=== PATIENT | male | born 1960 | race Asian ===

== ENCOUNTER 2022-04-19 15:21 | Inpatient (IN) | payer OTHER ==
[2022-04-19 19:26] LABS: BASO % 0.2 % (0-2.0); EOS % 0.4 % (0-4.5); HEMATOCRIT 46.3 % (35.4-49); HEMOGLOBIN 15.4 GM/dL (11.7-16.9); LYMPH % 13.4 % (8-40); MCH 28.8 pg (25.7-33.7); MCHC 33.2 g/dl (32.0-35.9); MEAN CELL VOLUME 86.6 fl (80-96); MEAN PLT VOLUME 7.5 fl (7.5-11.1); MONO % 5.5 % (3.8-10.2); NEUT % 80.5 % (42.8-82.8); PLATELET COUNT 272 10^3/uL (134-434); RBC 5.34 M/mm3 (4.00-5.60); RDW 14.1 % (11.9-15.9)
[2022-04-19 19:50] LABS: CALCIUM 9.3 mg/dL (8.5-10.1)
[2022-04-19 19:51] LABS: BLOOD UREA NITROGEN 15.7 mg/dL (7-18)
[2022-04-19 19:52] LABS: MAGNESIUM 2.3 mg/dL (1.8-2.4)
[2022-04-19 19:54] LABS: CREATININE 1.2 mg/dL (0.55-1.3); INR 1.07 (0.83-1.09); PROTHROMBIN TIME (PATIENT) 12.3 SEC (9.7-13.0)
[2022-04-19 19:55] LABS: TOT PROT 7.7 g/dl (6.4-8.2)
[2022-04-19 19:56] LABS: ACTIVATED PTT 29.4 SECONDS (25.2-36.5)
[2022-04-19 20:47] LABS: EPI CELLS 0 /uL (0-25.1); HYALINE CASTS 0 /uL (0-3.1); URINE APPEARANCE CLEAR; URINE BACTERIA >9,000 /uL (0-1359); URINE BILIRUBIN NEGATIVE (NEGATIVE); URINE COLOR YELLOW; URINE GLUCOSE (UA) NEGATIVE (NEGATIVE); URINE KETONE NEGATIVE (NEGATIVE); URINE LEUK ESTERASE 2+ (NEGATIVE); URINE NITRITE POSITIVE (NEGATIVE); URINE PROTEIN NEGATIVE (NEGATIVE); URINE RBC 1 /uL (0-23.9); URINE UROBILINOGEN 0.2 mg/dL (0.2-1.0); URINE WBC 133 /uL (0-25.8)
[2022-04-19] MEDS ORDERED: CEFTRIAXONE 1 GM in DEXTROSE 5%-WATER - 50 ML IVPB ONE (20:57)
[2022-04-19] MEDS ORDERED: CEFTRIAXONE 1 GM/50 ML BAG ONE (21:01)
[2022-04-20] MEDS ORDERED: LISINOPRIL 20 MG TABLET PO ONE (00:55)
[2022-04-20] MEDS ORDERED: LISINOPRIL 20 MG TABLET ONE (02:04)
[2022-04-20] MEDS ORDERED: ACETAMINOPHEN 1000 MG/100 ML BAG IVPB ONE (03:16)
[2022-04-20 07:49] LABS: BASO % 0.2 % (0-2.0); EOS % 0.7 % (0-4.5); HEMATOCRIT 44.1 % (35.4-49); HEMOGLOBIN 14.9 GM/dL (11.7-16.9); LYMPH % 10.3 % (8-40); MCH 29.7 pg (25.7-33.7); MCHC 33.9 g/dl (32.0-35.9); MEAN CELL VOLUME 87.6 fl (80-96); MEAN PLT VOLUME 7.7 fl (7.5-11.1); MONO % 5.7 % (3.8-10.2); NEUT % 83.1 % (42.8-82.8); PLATELET COUNT 230 10^3/uL (134-434); RBC 5.03 M/mm3 (4.00-5.60); RDW 13.9 % (11.9-15.9); WHITE BLOOD COUNT 10.9 K/mm3 (4.0-10.0)
[2022-04-20 08:17] LABS: BILIRUBIN,TOTAL 1.5 mg/dL (0.2-1)
[2022-04-20 08:18] LABS: TOT PROT 6.8 g/dl (6.4-8.2)
[2022-04-20 08:19] LABS: BLOOD UREA NITROGEN 15.1 mg/dL (7-18); CALCIUM 8.8 mg/dL (8.5-10.1); MAGNESIUM 2.2 mg/dL (1.8-2.4)
[2022-04-20 08:20] LABS: ALBUMIN 3.6 g/dl (3.4-5.0); CREATININE 1.1 mg/dL (0.55-1.3)
[2022-04-20 08:23] LABS: PHOSPHOROUS 2.9 mg/dL (2.5-4.9)
[2022-04-20] MEDS: INSULIN SLIDING SCALE (NOVOLOG) 1 VIAL SQ SCH ×4 (08:27→22:04)
[2022-04-20] MEDS ORDERED: CEFTRIAXONE 1 GM/50 ML BAG ONE (08:38)
[2022-04-20] MEDS ORDERED: ENOXAPARIN NA (PORCINE) 40 MG/0.4 ML DISP.SYRIN SQ ONE (08:38)
[2022-04-20] MEDS: HYDROCHLOROTHIAZIDE 12.5 MG CAPSULE (FP) PO SCH (09:00)
[2022-04-20] MEDS: ENOXAPARIN NA (PORCINE) 40 MG/0.4 ML DISP.SYRIN SQ SCH (09:00)
[2022-04-20] MEDS ORDERED: PIPERACILLIN/TAZOB 3.375 GM 3.375 GM in DEXTROSE 5%-WATER - 50 ML IVPB SCH ×2 (10:00→11:30)
[2022-04-20] MEDS ORDERED: CEFTRIAXONE 1,000 MG in DEXTROSE 5%-WATER - 50 ML IVPB SCH (10:00)
[2022-04-20 11:09] LABS: N-TERMINAL BNP 108.9 pg/ml (5-125)
[2022-04-20] MEDS ORDERED: PIPERACILLIN/TAZOB 3.375 GM 3.375 GM/50 ML BAG IVPB ONE (13:54)
[2022-04-20] MEDS ORDERED: PIPERACILLIN/TAZOBACTAM 3.375 GM VIAL IVPB ONE (19:01)
[2022-04-20 19:53] VITALS: BMI 27.1
[2022-04-20] MEDS ORDERED: LISINOPRIL 20 MG TABLET PO SCH (22:00)
[2022-04-20] MEDS: ATORVASTATIN CA 80 MG TABLET (FP) PO SCH (22:03)
[2022-04-20] MEDS: PIPERACILLIN/TAZOB 3.375 GM 3.375 GM in DEXTROSE 5%-WATER - 50 ML IVPB SCH (22:03)
[2022-04-21] MEDS ORDERED: PIPERACILLIN/TAZOBACTAM 3.375 GM VIAL IVPB ONE ×2 (02:13→09:08)
[2022-04-21] MEDS ORDERED: DEXTROSE 5%-WATER - 50 ML IVPB ONE ×2 (02:14→09:09)
[2022-04-21] MEDS: PIPERACILLIN/TAZOB 3.375 GM 3.375 GM in DEXTROSE 5%-WATER - 50 ML IVPB SCH ×2 (02:45→09:45)
[2022-04-21] MEDS: INSULIN SLIDING SCALE (NOVOLOG) 1 VIAL SQ SCH ×4 (06:15→21:52)
[2022-04-21 07:31] LABS: BASO % 0.5 % (0-2.0); EOS % 1.4 % (0-4.5); HEMATOCRIT 43.4 % (35.4-49); HEMOGLOBIN 14.8 GM/dL (11.7-16.9); LYMPH % 19.6 % (8-40); MCH 29.7 pg (25.7-33.7); MCHC 34.1 g/dl (32.0-35.9); MEAN CELL VOLUME 87.2 fl (80-96); MEAN PLT VOLUME 7.7 fl (7.5-11.1); MONO % 8.3 % (3.8-10.2); NEUT % 70.2 % (42.8-82.8); PLATELET COUNT 232 10^3/uL (134-434); RBC 4.98 M/mm3 (4.00-5.60); RDW 14.1 % (11.9-15.9); WHITE BLOOD COUNT 8.9 K/mm3 (4.0-10.0)
[2022-04-21 08:18] LABS: ALBUMIN 3.4 g/dl (3.4-5.0)
[2022-04-21 08:19] LABS: MAGNESIUM 2.4 mg/dL (1.8-2.4)
[2022-04-21 08:21] LABS: CREATININE 1.7 mg/dL (0.55-1.3)
[2022-04-21 08:22] LABS: TOT PROT 6.8 g/dl (6.4-8.2)
[2022-04-21 08:23] LABS: BILIRUBIN,TOTAL 1.4 mg/dL (0.2-1)
[2022-04-21] MEDS: HYDROCHLOROTHIAZIDE 12.5 MG CAPSULE (FP) PO SCH (09:44)
[2022-04-21] MEDS: ENOXAPARIN NA (PORCINE) 40 MG/0.4 ML DISP.SYRIN SQ SCH (09:44)
[2022-04-21] MEDS ORDERED: MEROPENEM 1 GM in DEXTROSE 5%-WATER 100 ML IVPB SCH ×3 (10:45→18:00)
[2022-04-21] MEDS: LACTATED RINGERS SOLUTION 1,000 ML/1,000 ML INFUS.BAG IV SCH (11:45)
[2022-04-21] MEDS ORDERED: MEROPENEM 1 GM VIAL (RESTRICTED TO ID) IVPB ONE ×2 (13:15→18:11)
[2022-04-21] MEDS ORDERED: DEXTROSE 5%-WATER 100 ML IVPB ONE ×2 (13:15→18:11)
[2022-04-21] MEDS: MEROPENEM 1 GM in DEXTROSE 5%-WATER 100 ML IVPB SCH (18:27)
[2022-04-21] MEDS: ATORVASTATIN CA 80 MG TABLET (FP) PO SCH (21:52)
[2022-04-22] MEDS ORDERED: MEROPENEM 1 GM VIAL (RESTRICTED TO ID) IVPB ONE ×3 (00:35→17:36)
[2022-04-22] MEDS ORDERED: DEXTROSE 5%-WATER 100 ML IVPB ONE ×3 (00:35→17:36)
[2022-04-22] MEDS: MEROPENEM 1 GM in DEXTROSE 5%-WATER 100 ML IVPB SCH ×3 (01:34→17:48)
[2022-04-22] MEDS ORDERED: ACETAMINOPHEN 325 MG TABLET (FP) PO ONE (03:51)
[2022-04-22] MEDS: INSULIN SLIDING SCALE (NOVOLOG) 1 VIAL SQ SCH ×4 (06:34→22:00)
[2022-04-22 08:41] LABS: BASO % 0.3 % (0-2.0); EOS % 0.5 % (0-4.5); HEMATOCRIT 44.8 % (35.4-49); LYMPH % 10.7 % (8-40); MCH 29.6 pg (25.7-33.7); MCHC 33.5 g/dl (32.0-35.9); MEAN CELL VOLUME 88.4 fl (80-96); MEAN PLT VOLUME 8.1 fl (7.5-11.1); MONO % 6.2 % (3.8-10.2); NEUT % 82.3 % (42.8-82.8); PLATELET COUNT 228 10^3/uL (134-434); RBC 5.08 M/mm3 (4.00-5.60); RDW 13.9 % (11.9-15.9); WHITE BLOOD COUNT 11.4 K/mm3 (4.0-10.0)
[2022-04-22 08:58] LABS: ALBUMIN 3.4 g/dl (3.4-5.0); BLOOD UREA NITROGEN 25.7 mg/dL (7-18); CALCIUM 8.6 mg/dL (8.5-10.1)
[2022-04-22 09:01] LABS: CREATININE 1.3 mg/dL (0.55-1.3)
[2022-04-22 09:03] LABS: BILIRUBIN,TOTAL 1.6 mg/dL (0.2-1); TOT PROT 6.6 g/dl (6.4-8.2)
[2022-04-22] MEDS: LACTATED RINGERS SOLUTION 1,000 ML/1,000 ML INFUS.BAG IV SCH (10:01)
[2022-04-22] MEDS: ENOXAPARIN NA (PORCINE) 40 MG/0.4 ML DISP.SYRIN SQ SCH (10:04)
[2022-04-22] MEDS ORDERED: LACTATED RINGERS SOLUTION 1,000 ML/1,000 ML INFUS.BAG IV SCH (10:29)
[2022-04-22] MEDS: LACTOBACILLUS ACIDOPHILUS 1 TABLET PO SCH (11:10)
[2022-04-22] MEDS: ATORVASTATIN CA 80 MG TABLET (FP) PO SCH (21:54)
[2022-04-23] MEDS ORDERED: MEROPENEM 1 GM VIAL (RESTRICTED TO ID) IVPB ONE (00:57)
[2022-04-23] MEDS ORDERED: DEXTROSE 5%-WATER 100 ML IVPB ONE (00:57)
[2022-04-23] MEDS: MEROPENEM 1 GM in DEXTROSE 5%-WATER 100 ML IVPB SCH (01:11)
[2022-04-23] MEDS: INSULIN SLIDING SCALE (NOVOLOG) 1 VIAL SQ SCH ×2 (06:28→12:42)
[2022-04-23 07:31] LABS: BASO % 0.3 % (0-2.0); EOS % 1.4 % (0-4.5); HEMATOCRIT 44.3 % (35.4-49); HEMOGLOBIN 15.3 GM/dL (11.7-16.9); LYMPH % 13.5 % (8-40); MCHC 34.6 g/dl (32.0-35.9); MEAN CELL VOLUME 86.7 fl (80-96); MEAN PLT VOLUME 7.6 fl (7.5-11.1); MONO % 7.9 % (3.8-10.2); NEUT % 76.9 % (42.8-82.8); PLATELET COUNT 242 10^3/uL (134-434); RBC 5.11 M/mm3 (4.00-5.60); RDW 13.9 % (11.9-15.9); WHITE BLOOD COUNT 11.2 K/mm3 (4.0-10.0)
[2022-04-23] MEDS ORDERED: ERTAPENEM SODIUM 1 GM in SODIUM CHLORIDE 50 ML IVPB ONE (07:40)
[2022-04-23 07:45] LABS: ALBUMIN 3.6 g/dl (3.4-5.0); BLOOD UREA NITROGEN 18.3 mg/dL (7-18); MAGNESIUM 2.1 mg/dL (1.8-2.4)
[2022-04-23 07:48] LABS: CREATININE 1.2 mg/dL (0.55-1.3); PHOSPHOROUS 2.5 mg/dL (2.5-4.9)
[2022-04-23 07:49] LABS: BILIRUBIN,TOTAL 1.7 mg/dL (0.2-1); TOT PROT 7.2 g/dl (6.4-8.2)
[2022-04-23 09:14] VITALS: BP 116/73; PULSE 97; TEMP 98.8
[2022-04-23] MEDS: LACTOBACILLUS ACIDOPHILUS 1 TABLET PO SCH (10:12)
[2022-04-23] MEDS: ENOXAPARIN NA (PORCINE) 40 MG/0.4 ML DISP.SYRIN SQ SCH (10:12)
== END 2022-04-23 16:51 | disposition home or self-care (01) | DRG 720 ==
LOC: JER 15:21 → OBSVTOIN 21:39 → JERBED 21:39 → J4W 04-20 17:56
PROVIDERS: ADMIT Internal Medicine; ATTEND Internal Medicine
PROC: 02HV33Z Insertion of Infusion Device into Superior Vena Cava, Percutaneous Approach (ICD-10-PCS; principal; 2022-04-22)
PROC: B548ZZA Ultrasonography of Superior Vena Cava, Guidance (ICD-10-PCS; 2022-04-22)
DX: A41.9 Sepsis, unspecified organism (principal); N39.0 Urinary tract infection, site not specified; N17.9 Acute kidney failure, unspecified; E11.65 Type 2 diabetes mellitus with hyperglycemia; I10 Essential (primary) hypertension; I16.0 Hypertensive urgency; E78.5 Hyperlipidemia, unspecified; D72.829 Elevated white blood cell count, unspecified; B96.20 Unspecified Escherichia coli [E. coli] as the cause of diseases classified elsewhere; Z16.12 Extended spectrum beta lactamase (ESBL) resistance
CPT/HCPCS: 36415; 36569; 70450-TC; 71046-TC-FY; 77001-TC-FY; 80053; 80061; 81003; 82962; 83036; 83735; 83880; 84100; 84443; 84484; 85025; 85610; 85730; 87086; 87186; 93005; 93010; 93306-TC; 93880-TC; 99285-25; C1751; C9803-CS; U0003; U0005

== ENCOUNTER 2022-04-24 09:56 | Day surgery (SDC) | payer SELFPAY ==
[2022-04-24] MEDS ORDERED: ERTAPENEM SODIUM 1 GM in SODIUM CHLORIDE 50 ML IVPB ONE (10:30)
[2022-04-24] MEDS ORDERED: ERTAPENEM SODIUM 1 GM VIAL ONE (10:33)
[2022-04-24] MEDS ORDERED: SODIUM CHLORIDE 50 ML IVPB ONE (10:33)
[2022-04-24 11:12] VITALS: BP 133/81; PULSE 87; TEMP 98.1
== END 2022-04-24 11:16 | disposition home or self-care (01) ==
LOC: FINFUSION 09:56 → FM/S 10:04 → FINFUSION 11:16
PROVIDERS: ATTEND Internal Medicine Infectious Disease
DX: N39.0 Urinary tract infection, site not specified (principal); I10 Essential (primary) hypertension; E11.9 Type 2 diabetes mellitus without complications; Z79.4 Long term (current) use of insulin
CPT/HCPCS: 96366; 96367

== ENCOUNTER 2022-04-25 10:14 | Day surgery (SDC) | payer SELFPAY ==
[2022-04-25] MEDS ORDERED: ERTAPENEM SODIUM 1 GM VIAL ONE (10:37)
[2022-04-25] MEDS ORDERED: SODIUM CHLORIDE 50 ML IVPB ONE (10:37)
[2022-04-25] MEDS ORDERED: ERTAPENEM SODIUM 1 GM in SODIUM CHLORIDE 50 ML IVPB ONE (11:00)
[2022-04-25 11:56] VITALS: BP 120/76; PULSE 84; TEMP 98.5
== END 2022-04-25 11:30 | disposition home or self-care (01) ==
LOC: FINFUSION 10:14 → FM/S 10:14 → FINFUSION 11:30
PROVIDERS: ATTEND Internal Medicine Infectious Disease
DX: N39.0 Urinary tract infection, site not specified (principal); I10 Essential (primary) hypertension; E11.9 Type 2 diabetes mellitus without complications; Z79.4 Long term (current) use of insulin
CPT/HCPCS: 96365

== ENCOUNTER 2022-04-26 10:43 | Day surgery (SDC) | payer SELFPAY ==
[2022-04-26] MEDS ORDERED: SODIUM CHLORIDE 50 ML IVPB ONE (10:59)
[2022-04-26] MEDS ORDERED: ERTAPENEM SODIUM 1 GM VIAL ONE (10:59)
[2022-04-26] MEDS ORDERED: ERTAPENEM SODIUM 1 GM in SODIUM CHLORIDE 50 ML IVPB ONE (11:00)
[2022-04-26 11:34] VITALS: BP 133/65; PULSE 84; TEMP 98.5
== END 2022-04-26 11:45 | disposition home or self-care (01) ==
LOC: FINFUSION 10:43 → FM/S 10:46 → FINFUSION 11:45
PROVIDERS: ATTEND Internal Medicine Infectious Disease
DX: N39.0 Urinary tract infection, site not specified (principal); I10 Essential (primary) hypertension; E11.9 Type 2 diabetes mellitus without complications; Z79.4 Long term (current) use of insulin
CPT/HCPCS: 96365

== ENCOUNTER 2022-04-27 11:19 | Day surgery (SDC) | payer SELFPAY ==
[2022-04-27] MEDS ORDERED: ERTAPENEM SODIUM 1 GM in SODIUM CHLORIDE 50 ML IVPB ONE (12:15)
[2022-04-27] MEDS ORDERED: SODIUM CHLORIDE 50 ML IVPB ONE (12:15)
[2022-04-27] MEDS ORDERED: ERTAPENEM SODIUM 1 GM VIAL ONE (12:15)
[2022-04-27 13:34] VITALS: BP 112/73; PULSE 83; TEMP 98.1
== END 2022-04-27 13:25 | disposition home or self-care (01) ==
LOC: FINFUSION 11:19 → FM/S 11:30 → FINFUSION 13:25
PROVIDERS: ATTEND Internal Medicine Infectious Disease
DX: N39.0 Urinary tract infection, site not specified (principal); I10 Essential (primary) hypertension; E11.9 Type 2 diabetes mellitus without complications; Z79.4 Long term (current) use of insulin
CPT/HCPCS: 96365; 96367

== ENCOUNTER 2022-04-28 10:45 | Day surgery (SDC) | payer SELFPAY ==
[2022-04-28] MEDS ORDERED: SODIUM CHLORIDE 50 ML IVPB ONE (11:09)
[2022-04-28] MEDS ORDERED: ERTAPENEM SODIUM 1 GM VIAL ONE (11:09)
[2022-04-28] MEDS ORDERED: ERTAPENEM SODIUM 1 GM in SODIUM CHLORIDE 50 ML IVPB ONE (11:30)
[2022-04-28 11:46] VITALS: BP 133/75; PULSE 70; TEMP 98.3
== END 2022-04-28 11:48 | disposition home or self-care (01) ==
LOC: FINFUSION 10:45 → FM/S 11:01 → FINFUSION 11:48
PROVIDERS: ATTEND Internal Medicine Infectious Disease
DX: N39.0 Urinary tract infection, site not specified (principal); I10 Essential (primary) hypertension; E11.9 Type 2 diabetes mellitus without complications; Z79.4 Long term (current) use of insulin
CPT/HCPCS: 96365

== ENCOUNTER 2022-04-29 10:15 | Day surgery (SDC) | payer SELFPAY ==
[2022-04-29] MEDS ORDERED: SODIUM CHLORIDE 50 ML IVPB ONE (10:34)
[2022-04-29] MEDS ORDERED: ERTAPENEM SODIUM 1 GM VIAL ONE (10:34)
[2022-04-29] MEDS ORDERED: ERTAPENEM SODIUM 1 GM in SODIUM CHLORIDE 50 ML IVPB ONE (10:45)
[2022-04-29 11:30] VITALS: BP 106/88; PULSE 74; TEMP 97.9
== END 2022-04-29 11:35 | disposition home or self-care (01) ==
LOC: FINFUSION 10:15 → FM/S 10:16 → FINFUSION 11:35
PROVIDERS: ATTEND Internal Medicine Infectious Disease
DX: N39.0 Urinary tract infection, site not specified (principal); I10 Essential (primary) hypertension; E11.9 Type 2 diabetes mellitus without complications; Z79.4 Long term (current) use of insulin
CPT/HCPCS: 96365

== ENCOUNTER 2022-04-30 11:39 | Day surgery (SDC) | payer SELFPAY ==
[2022-04-30] MEDS ORDERED: ERTAPENEM SODIUM 1 GM/50 ML PRE-DOCKED IVPB SCH (12:00)
[2022-04-30 13:38] VITALS: BP 118/54; PULSE 85; TEMP 98.2
== END 2022-04-30 13:00 | disposition home or self-care (01) ==
LOC: FINFUSION 11:39 → FM/S 11:43 → FINFUSION 13:00
PROVIDERS: ATTEND Internal Medicine Infectious Disease
DX: N39.0 Urinary tract infection, site not specified (principal); I10 Essential (primary) hypertension; E11.9 Type 2 diabetes mellitus without complications; Z79.4 Long term (current) use of insulin
CPT/HCPCS: 96365

== ENCOUNTER 2022-05-01 10:06 | Day surgery (SDC) | payer SELFPAY ==
[2022-05-01] MEDS ORDERED: ERTAPENEM SODIUM 1 GM in SODIUM CHLORIDE 50 ML IVPB ONE (11:00)
[2022-05-01] MEDS ORDERED: ERTAPENEM SODIUM 1 GM VIAL ONE (11:02)
[2022-05-01] MEDS ORDERED: SODIUM CHLORIDE 50 ML IVPB ONE (11:02)
[2022-05-01 12:03] VITALS: BP 115/77; PULSE 87; TEMP 98.9
== END 2022-05-01 12:04 | disposition home or self-care (01) ==
LOC: FINFUSION 10:06 → FM/S 10:30 → FINFUSION 12:04
PROVIDERS: ATTEND Internal Medicine Infectious Disease
DX: N39.0 Urinary tract infection, site not specified (principal); I10 Essential (primary) hypertension; E11.9 Type 2 diabetes mellitus without complications; Z79.4 Long term (current) use of insulin
CPT/HCPCS: 96365

== ENCOUNTER 2023-10-25 15:18 | Emergency (ER) | payer OTHER ==
[2023-10-25 15:37] VITALS: BP 157/83; PULSE 96; RESP 18; TEMP 97.5; BMI 25.0
[2023-10-25] MEDS ORDERED: SODIUM CHLORIDE 1,000 ML IV STA (16:21)
[2023-10-25 16:45] LABS: BASO % 0.3 % (0-2.0); EOS % 1.1 % (0-4.5); HEMATOCRIT 41.2 % (35.4-49); HEMOGLOBIN 13.5 GM/dL (11.7-16.9); LYMPH % 13.3 % (8-40); MCH 28.7 pg (25.7-33.7); MCHC 32.8 g/dl (32.0-35.9); MEAN CELL VOLUME 87.5 fl (80-96); MEAN PLT VOLUME 7.2 fl (7.5-11.1); MONO % 5.2 % (3.8-10.2); NEUT % 80.1 % (42.8-82.8); PLATELET COUNT 282 10^3/uL (134-434); RBC 4.71 M/mm3 (4.00-5.60); RDW 14.8 % (11.9-15.9)
[2023-10-25 17:12] LABS: EPI CELLS 1 /uL (0-25.1); HYALINE CASTS 1 /uL (0-3.1); PH,URINE 5.5 (5.0-8.0); URINE APPEARANCE CLEAR; URINE BACTERIA 7687 /uL (0-1359); URINE BILIRUBIN NEGATIVE (NEGATIVE); URINE COLOR YELLOW; URINE GLUCOSE (UA) NEGATIVE (NEGATIVE); URINE KETONE NEGATIVE (NEGATIVE); URINE LEUK ESTERASE 3+ (NEGATIVE); URINE NITRITE POSITIVE (NEGATIVE); URINE PROTEIN NEGATIVE (NEGATIVE); URINE RBC 16 /uL (0-23.9); URINE UROBILINOGEN 0.2 mg/dL (0.2-1.0); URINE WBC 637 /uL (0-25.8)
[2023-10-25] MEDS ORDERED: NITROFURANTOIN MACROCRYSTAL 50 MG CAPSULE (FP) ONE (17:40)
[2023-10-25] MEDS ORDERED: NITROFURANTOIN MACROCRYSTAL 50 MG CAPSULE (FP) PO ONE (17:45)
[2023-10-25] MEDS ORDERED: ACETAMINOPHEN 500 MG TABLET (FP) PO ONE (18:10)
[2023-10-25] MEDS ORDERED: ACETAMINOPHEN 325 MG TABLET (FP) ONE (18:18)
[2023-10-25 18:37] LABS: POTASSIUM 5.2 mmol/L (3.5-5.1)
[2023-10-25 18:39] LABS: CALCIUM 9.3 mg/dL (8.5-10.1)
[2023-10-25 18:40] LABS: ALBUMIN 3.8 g/dl (3.4-5.0); BLOOD UREA NITROGEN 17.2 mg/dL (7-18)
[2023-10-25 18:43] LABS: CREATININE 1.6 mg/dL (0.55-1.3)
[2023-10-25 18:45] LABS: BILIRUBIN,TOTAL 0.6 mg/dL (0.2-1); TOT PROT 7.7 g/dl (6.4-8.2)
== END 2023-10-25 19:59 | disposition home or self-care (01) ==
LOC: JER 15:18
DX: R51.9 Headache, unspecified (principal); N39.0 Urinary tract infection, site not specified; R07.89 Other chest pain
CPT/HCPCS: 36415; 70450-TC; 71046-TC-FY; 80053; 81003; 82550; 83690; 84484; 85025; 87086; 87186; 93005; 93010; 99285-25

== ENCOUNTER 2023-10-31 16:55 | Emergency (ER) | payer OTHER ==
[2023-10-31 17:05] VITALS: BP 148/79; PULSE 80; RESP 18; TEMP 98; BMI 25.0
[2023-10-31 18:07] LABS: BASO % 0.3 % (0-2.0); EOS % 1.7 % (0-4.5); HEMATOCRIT 41.2 % (35.4-49); HEMOGLOBIN 13.6 GM/dL (11.7-16.9); LYMPH % 17.1 % (8-40); MCH 28.5 pg (25.7-33.7); MCHC 32.9 g/dl (32.0-35.9); MEAN CELL VOLUME 86.5 fl (80-96); MEAN PLT VOLUME 7.1 fl (7.5-11.1); MONO % 8.5 % (3.8-10.2); NEUT % 72.4 % (42.8-82.8); PLATELET COUNT 281 10^3/uL (134-434); RBC 4.76 M/mm3 (4.00-5.60); RDW 14.7 % (11.9-15.9); WHITE BLOOD COUNT 9.2 K/mm3 (4.0-10.0)
[2023-10-31 18:25] LABS: POTASSIUM 4.5 mmol/L (3.5-5.1)
[2023-10-31 18:26] LABS: CALCIUM 9.3 mg/dL (8.5-10.1)
[2023-10-31 18:27] LABS: BLOOD UREA NITROGEN 18.7 mg/dL (7-18)
[2023-10-31 18:31] LABS: CREATININE 1.4 mg/dL (0.55-1.3)
[2023-10-31 18:32] LABS: BILIRUBIN,TOTAL 1.4 mg/dL (0.2-1); TOT PROT 7.4 g/dl (6.4-8.2)
[2023-10-31 19:03] LABS: EPI CELLS 0 /uL (0-25.1); HYALINE CASTS 3 /uL (0-3.1); PH,URINE 5.5 (5.0-8.0); URINE APPEARANCE CLOUDY; URINE BACTERIA 2509 /uL (0-1359); URINE BILIRUBIN NEGATIVE (NEGATIVE); URINE COLOR YELLOW; URINE GLUCOSE (UA) NEGATIVE (NEGATIVE); URINE KETONE NEGATIVE (NEGATIVE); URINE LEUK ESTERASE 3+ (NEGATIVE); URINE NITRITE NEGATIVE (NEGATIVE); URINE PROTEIN NEGATIVE (NEGATIVE); URINE RBC 13 /uL (0-23.9); URINE UROBILINOGEN 0.2 mg/dL (0.2-1.0); URINE WBC 547 /uL (0-25.8)
[2023-10-31] MEDS ORDERED: SULFAMETHOXAZOLE/TRIMETHOPRIM 800MG/160MG D.S. TABLET PO ONE (20:49)
[2023-10-31] MEDS ORDERED: SULFAMETHOXAZOLE/TRIMETHOPRIM 800MG/160MG D.S. TABLET ONE (21:15)
== END 2023-10-31 21:22 | disposition home or self-care (01) ==
LOC: JER 16:55
DX: R51.9 Headache, unspecified (principal); I10 Essential (primary) hypertension; N39.0 Urinary tract infection, site not specified; R30.0 Dysuria
CPT/HCPCS: 36415; 80053; 81003; 82962; 85025; 87086; 87186; 99283-25

== ENCOUNTER 2025-07-16 12:32 | Inpatient (IN) | payer OTHER ==
[2025-07-16] MEDS ORDERED: ACETAMINOPHEN INJECTION 100 ML ONE (13:26)
[2025-07-16] MEDS ORDERED: ONDANSETRON 4 MG/2 ML VIAL ONE (13:27)
[2025-07-16] MEDS: ONDANSETRON 4 MG/2 ML VIAL IVPB ONE (13:57)
[2025-07-16] MEDS: ACETAMINOPHEN 1000 MG/100 ML BAG IVPB ONE (13:57)
[2025-07-16 13:59] LABS: BG HCT 41.0 % (35.4-49); VENOUS BASE EXCESS -5.5 mmol/L (-2-2); VENOUS O2 SATURATION 48.2 % (70-80); VENOUS PCO2 44.9 mmHg (38-52); VENOUS PH 7.289 (7.310-7.410)
[2025-07-16 14:00] LABS: MCHC 32.5 g/dl (32.3-36.5); MEAN CELL VOLUME 88.0 fl (79.0-92.2); MEAN PLT VOLUME 9.8 fl (9.4-12.4); RDW 12.9 % (12.2-16.4)
[2025-07-16 14:09] LABS: INR 1.2 (0.83-1.09); PROTHROMBIN TIME (PATIENT) 13.1 SEC (9.7-13.0)
[2025-07-16 14:11] LABS: ACTIVATED PTT 21.7 SECONDS (25.2-36.5)
[2025-07-16 14:20] LABS: GLUCOSE,RANDOM 251.0 mg/dL (74-106); TOT PROT 7.4 g/dl (6.4-8.2)
[2025-07-16 14:21] LABS: CO2 21.0 mmol/L (21-32)
[2025-07-16 14:23] LABS: ALK PHOS 171.0 U/L (40-150)
[2025-07-16 14:26] LABS: CREATININE 1.99 mg/dL (0.55-1.3); SGOT/AST 18.0 U/L (5-34); SGPT/ALT 15.0 U/L (0-55)
[2025-07-16] MEDS: LACTATED RINGERS SOLUTION 1000 ML INFUS.BAG IV ONE (14:34)
[2025-07-16 14:47] LABS: HCV DIAGNOSTIC IN-HOUSE W/RFLX NON-REACTIVE (NONREACTIVE); HIV INTERPRETATION NEGATIVE (NEGATIVE)
[2025-07-16] MEDS: LACTATED RINGERS SOLUTION 1,000 ML/1,000 ML INFUS.BAG IV STA (15:50)
[2025-07-16 17:07] LABS: URINE APPEARANCE TURBID; URINE COLOR YELLOW
[2025-07-16 17:08] LABS: URINE BILIRUBIN NEGATIVE (NEGATIVE); URINE GLUCOSE (UA) 250 (NEGATIVE); URINE KETONE NEGATIVE (NEGATIVE); URINE LEUK ESTERASE 4+ (NEGATIVE); URINE NITRITE NEGATIVE (NEGATIVE); URINE PROTEIN TRACE (NEGATIVE); URINE UROBILINOGEN 0.2 mg/dL (0.2-1.0)
[2025-07-16] MEDS ORDERED: IBUPROFEN 400 MG TABLET (FP) PO ONE ×2 (18:05→18:28)
[2025-07-16] MEDS ORDERED: ERTAPENEM SODIUM 1 GM VIAL ONE (18:27)
[2025-07-16] MEDS: IBUPROFEN 400 MG TABLET (FP) PO ONE (18:37)
[2025-07-16] MEDS: ERTAPENEM SODIUM 1 GM in SODIUM CHLORIDE 50 ML IVPB ONE (18:42)
[2025-07-16 19:34] LABS: LACTIC ACID 3.1 mmol/L (0.4-2.0)
[2025-07-16] MEDS: LACTATED RINGERS SOLUTION 1,000 ML IV SCH (20:47)
[2025-07-16] MEDS: HEPARIN NA (PORCINE) 5,000 UNITS/ML 1ML VIAL SQ SCH (21:55)
[2025-07-16] MEDS: ATORVASTATIN CA 40 MG TABLET (FP) PO SCH (21:55)
[2025-07-16] MEDS: INSULIN ASPART SLIDING SCALE (NOVOLOG) 1 VIAL SQ SCH (21:56)
[2025-07-17] MEDS: ACETAMINOPHEN 1000 MG/100 ML BAG IVPB PRN (01:34)
[2025-07-17] MEDS: ONDANSETRON 4 MG/2 ML VIAL IVPUSH PRN (01:35)
[2025-07-17] MEDS: LACTATED RINGERS SOLUTION 1000 ML INFUS.BAG IV ONE ×2 (01:36→16:25)
[2025-07-17 09:01] LABS: MCHC 32.2 g/dl (32.3-36.5); MEAN CELL VOLUME 88.3 fl (79.0-92.2); MEAN PLT VOLUME 9.9 fl (9.4-12.4); RDW 13.1 % (12.2-16.4)
[2025-07-17] MEDS: LOSARTAN POTASSIUM 50 MG TABLET PO SCH (09:10)
[2025-07-17] MEDS: ERTAPENEM SODIUM 1 GM in SODIUM CHLORIDE 50 ML IVPB SCH (09:10)
[2025-07-17 09:50] LABS: LACTIC ACID 6.7 mmol/L (0.4-2.0)
[2025-07-17 09:56] LABS: GLUCOSE,RANDOM 89 mg/dL (74-106)
[2025-07-17 09:57] LABS: TOT PROT 5.7 g/dl (6.4-8.2)
[2025-07-17 09:58] LABS: CO2 17 mmol/L (21-32)
[2025-07-17 10:00] LABS: ALK PHOS 115 U/L (40-150)
[2025-07-17] MEDS ORDERED: ERTAPENEM SODIUM 1 GM in SODIUM CHLORIDE 50 ML IVPB SCH (10:00)
[2025-07-17 10:02] LABS: SGOT/AST 20 U/L (5-34); SGPT/ALT 9 U/L (0-55)
[2025-07-17 10:03] LABS: CREATININE 3.71 mg/dL (0.55-1.3)
[2025-07-17] MEDS: ALBUTEROL SO4 0.083% IH SOL 2.5 MG/3 ML VIAL.NEB. NEB ONE ×2 (11:39→16:20)
[2025-07-17] MEDS: MAGNESIUM 1GM/D5W - 1 GM/100 ML IVPB IVPB ONE (11:44)
[2025-07-17] MEDS ORDERED: MAGNESIUM 2GM/50ML STERILE WATER IVPB IVPB ONE (12:00)
[2025-07-17] MEDS: NAPH,MB-DB/K PH,MBDB POWDER PACKET PO ONE (12:09)
[2025-07-17] MEDS: SODIUM POLYSTYRENE SULFONATE 15 GM/60 ML BOTTLE PO ONE ×2 (12:09→12:48)
[2025-07-17] MEDS: POTASSIUM PHOSPHATE 15 MM in DEXTROSE 5%-WATER - 250 ML IVPB ONE (12:16)
[2025-07-17] MEDS: ALBUTEROL SULFATE 0.021% (0.63 MG/3 ML) VIAL.NEB NEB ONE (12:18)
[2025-07-17] MEDS: CALCIUM GLUC IN NACL, ISO-OSM 1 GM/50 ML BAG IVPB ONE (12:30)
[2025-07-17 13:08] LABS: GLUCOSE,RANDOM 92.0 mg/dL (74-106)
[2025-07-17 13:09] LABS: TOT PROT 5.9 g/dl (6.4-8.2)
[2025-07-17 13:10] LABS: CO2 15.0 mmol/L (21-32)
[2025-07-17 13:11] LABS: ALK PHOS 117.0 U/L (40-150)
[2025-07-17 13:14] LABS: CREATININE 3.83 mg/dL (0.55-1.3); SGOT/AST 23.0 U/L (5-34); SGPT/ALT 12.0 U/L (0-55)
[2025-07-17] MEDS ORDERED: MEROPENEM 1 GM in DEXTROSE 5%-WATER 100 ML IVPB SCH ×3 (15:30→22:00)
[2025-07-17] MEDS: MEROPENEM 1 GM in DEXTROSE 5%-WATER 100 ML IVPB SCH (16:03)
[2025-07-17] MEDS: LACTATED RINGERS SOLUTION 1000 ML INFUS.BAG IV STA (16:04)
[2025-07-17 16:20] LABS: ARTERIAL BLD GAS O2 SATURATION 57.0 % (95-98); ARTERIAL BLOOD GAS BASE EXCESS -9.2 mmol/L (-2-2); ARTERIAL BLOOD GAS PCO2 32.60 mmHg (35-45); BG HCT 46.0 % (35.4-49); GLUCOSE,RANDOM 107 mg/dL (74-106); O2 CONTENT 1.31 % vol; TOT PROT 5.6 g/dl (6.4-8.2)
[2025-07-17 16:21] LABS: CO2 15 mmol/L (21-32)
[2025-07-17 16:23] LABS: ALK PHOS 113 U/L (40-150)
[2025-07-17 16:25] LABS: SGOT/AST 23 U/L (5-34); SGPT/ALT 10 U/L (0-55)
[2025-07-17 16:26] LABS: CREATININE 3.70 mg/dL (0.55-1.3); LACTIC ACID 7.3 mmol/L (0.4-2.0)
[2025-07-17 16:38] LABS: N-TERMINAL BNP 8568.1 pg/mL (0-299.9)
[2025-07-17 16:40] LABS: ALLENS TEST POSITIVE
[2025-07-17 16:43] LABS: ARTERIAL BLOOD GAS PO2 32.3 mmHg (80-100)
[2025-07-17] MEDS: SODIUM CHLORIDE 0.9% 1000 ML INFUS.BAG IV ONE (17:35)
[2025-07-17] MEDS: SODIUM CHLORIDE 1,000 ML IV SCH (17:35)
[2025-07-17] MEDS: SODIUM ZIRCONIUM CYCLOSILICATE (LOKELMA) 5 GM PACKET PO SCH (17:37)
[2025-07-17] MEDS: INSULIN REGULAR HUMAN 100 UNITS/ML *VIAL IVPUSH ONE (17:46)
[2025-07-17] MEDS: DEXTROSE 50%-WATER 25 GM/50 ML DISP.SYRIN IVPUSH ONE (17:46)
[2025-07-17] MEDS: SODIUM BICARBONATE 8.4% 50 MEQ/50 ML VIAL IVPUSH ONE ×2 (18:44→22:24)
[2025-07-17] MEDS ORDERED: ONDANSETRON 4 MG/2 ML VIAL IVPUSH PRN (19:28)
[2025-07-17 21:48] LABS: GLUCOSE,RANDOM 133.0 mg/dL (74-106)
[2025-07-17 21:50] LABS: CO2 18.0 mmol/L (21-32)
[2025-07-17 21:52] LABS: LACTIC ACID 6.1 mmol/L (0.4-2.0)
[2025-07-17 21:54] LABS: CREATININE 4.14 mg/dL (0.55-1.3)
[2025-07-17] MEDS ORDERED: PIPERACILLIN/TAZOB 4.5 GM 4.5 GM in DEXTROSE 5%-WATER 100 ML IVPB SCH (22:00)
[2025-07-17] MEDS: INSULIN ASPART SLIDING SCALE (NOVOLOG) 1 VIAL SQ SCH (22:07)
[2025-07-17] MEDS: ATORVASTATIN CA 40 MG TABLET (FP) PO SCH (22:11)
[2025-07-17] MEDS: HEPARIN NA (PORCINE) 5,000 UNITS/ML 1ML VIAL SQ SCH (22:11)
[2025-07-17] MEDS ORDERED: ALBUTEROL SO4 0.083% IH SOL 2.5 MG/3 ML VIAL.NEB. NEB ONE (23:02)
[2025-07-18] MEDS: MEROPENEM 1 GM in DEXTROSE 5%-WATER 100 ML IVPB SCH ×2 (04:00→17:36)
[2025-07-18] MEDS: SODIUM CHLORIDE 1,000 ML IV SCH ×2 (06:21→21:36)
[2025-07-18 08:29] LABS: MCHC 33.5 g/dl (32.3-36.5); MEAN PLT VOLUME 10.9 fl (9.4-12.4); RDW 13.3 % (12.2-16.4)
[2025-07-18 08:30] LABS: IMMATURE PLATELET FRACTION # 3.10 x10^3/uL; MEAN CELL VOLUME 86.6 fl (79.0-92.2)
[2025-07-18 09:05] LABS: LACTIC ACID 5.0 mmol/L (0.4-2.0)
[2025-07-18 09:19] LABS: GLUCOSE,RANDOM 130.0 mg/dL (74-106); TOT PROT 5.6 g/dl (6.4-8.2)
[2025-07-18 09:20] LABS: CO2 19.0 mmol/L (21-32)
[2025-07-18 09:22] LABS: ALK PHOS 142.0 U/L (40-150)
[2025-07-18 09:24] LABS: SGOT/AST 32.0 U/L (5-34); SGPT/ALT 10.0 U/L (0-55)
[2025-07-18 09:25] LABS: CREATININE 4.48 mg/dL (0.55-1.3)
[2025-07-18] MEDS ORDERED: SODIUM ZIRCONIUM CYCLOSILICATE (LOKELMA) 5 GM PACKET PO SCH (10:00)
[2025-07-18] MEDS: ACETAMINOPHEN 1000 MG/100 ML BAG IVPB PRN ×2 (12:55→22:57)
[2025-07-18] MEDS: MAGNESIUM OXIDE 400 MG TABLET (FP) PO ONE (13:54)
[2025-07-18 15:16] LABS: ARTERIAL BLD GAS O2 SATURATION 97.4 % (95-98); ARTERIAL BLOOD GAS BASE EXCESS -1.9 mmol/L (-2-2); ARTERIAL BLOOD GAS PCO2 28.30 mmHg (35-45); ARTERIAL BLOOD GAS PO2 88.0 mmHg (80-100); BG HCT 31.0 % (35.4-49)
[2025-07-18 15:17] LABS: ALLENS TEST POSITIVE
[2025-07-18] MEDS: ALBUTEROL SO4 2.5/IPRATROPIUM 0.5 INH SOL 3 ML VIAL.NEB. NEB PRN (16:03)
[2025-07-18] MEDS ORDERED: MIDAZOLAM IN 0.9 % SOD.CHLORID 1 MG/1 ML PLAST..BAG ONE (17:00)
[2025-07-18] MEDS ORDERED: ONDANSETRON 4 MG/2 ML VIAL IVPUSH PRN (20:02)
[2025-07-18] MEDS: ALBUTEROL SO4 0.083% IH SOL 2.5 MG/3 ML VIAL.NEB. NEB ONE (20:30)
[2025-07-18] MEDS: DEXMEDETOMIDINE PREMIX 400 MCG/100 ML BAG IVPB SCH (20:56)
[2025-07-18] MEDS: HEPARIN NA (PORCINE) 5,000 UNITS/ML 1ML VIAL SQ SCH (21:36)
[2025-07-18] MEDS: ATORVASTATIN CA 40 MG TABLET (FP) PO SCH (21:36)
[2025-07-18] MEDS: CHLORHEXIDINE GLUCONATE 4% CLEANSER FOR DECOLONIZATION TP SCH (21:37)
[2025-07-18] MEDS: MUPIROCIN 2% TOPICAL OINTMENT FOR DECOLONIZATION NS SCH (21:44)
[2025-07-18] MEDS: INSULIN ASPART SLIDING SCALE (NOVOLOG) 1 VIAL SQ SCH (21:44)
[2025-07-19] MEDS: MEROPENEM 1 GM in DEXTROSE 5%-WATER 100 ML IVPB SCH (01:06)
[2025-07-19 06:52] LABS: IMMATURE PLATELET FRACTION # 3.40 x10^3/uL; MCHC 33.9 g/dl (32.3-36.5); MEAN CELL VOLUME 84.6 fl (79.0-92.2); MEAN PLT VOLUME 11.7 fl (9.4-12.4); RDW 13.4 % (12.2-16.4)
[2025-07-19 07:04] LABS: GLUCOSE,RANDOM 141 mg/dL (74-106); TOT PROT 5.4 g/dl (6.4-8.2)
[2025-07-19 07:05] LABS: CO2 19 mmol/L (21-32)
[2025-07-19 07:07] LABS: ALK PHOS 151 U/L (40-150)
[2025-07-19 07:09] LABS: CREATININE 4.73 mg/dL (0.55-1.3); SGOT/AST 34 U/L (5-34); SGPT/ALT 8 U/L (0-55)
[2025-07-19] MEDS: CALCIUM GLUCONATE 10% - 1,000 MG/10 ML VIAL IVPB ONE (09:26)
[2025-07-19] MEDS: PANTOPRAZOLE SODIUM 40 MG VIAL IVPUSH SCH (13:23)
[2025-07-19] MEDS: FUROSEMIDE 40 MG/4 ML INJECTABLE VIAL IVPUSH ONE (13:23)
[2025-07-19] MEDS: ALBUTEROL SO4 2.5/IPRATROPIUM 0.5 INH SOL 3 ML VIAL.NEB. NEB SCH (16:05)
[2025-07-20 07:02] LABS: IMMATURE PLATELET FRACTION # 3.50 x10^3/uL; MCHC 34.1 g/dl (32.3-36.5); MEAN CELL VOLUME 84.0 fl (79.0-92.2); MEAN PLT VOLUME 11.7 fl (9.4-12.4); RDW 13.7 % (12.2-16.4)
[2025-07-20 07:18] LABS: GLUCOSE,RANDOM 117.0 mg/dL (74-106); TOT PROT 5.3 g/dl (6.4-8.2)
[2025-07-20 07:19] LABS: CO2 19.0 mmol/L (21-32)
[2025-07-20 07:21] LABS: ALK PHOS 182.0 U/L (40-150)
[2025-07-20 07:23] LABS: SGPT/ALT 8.0 U/L (0-55)
[2025-07-20 07:24] LABS: CREATININE 5.58 mg/dL (0.55-1.3); SGOT/AST 55.0 U/L (5-34)
[2025-07-20 15:40] LABS: ALLENS TEST POSITIVE; ARTERIAL BLD GAS O2 SATURATION 96.4 % (95-98); ARTERIAL BLOOD GAS BASE EXCESS -5.5 mmol/L (-2-2); ARTERIAL BLOOD GAS PCO2 28.50 mmHg (35-45); ARTERIAL BLOOD GAS PO2 81.7 mmHg (80-100); BG HCT 31.0 % (35.4-49); O2 CONTENT 1.43 % vol
[2025-07-20 16:13] VITALS: BMI 30.8
[2025-07-20] MEDS: LIDOCAINE 5% TOPICAL PATCH TP SCH (17:21)
[2025-07-20] MEDS: MEROPENEM 500 MG in DEXTROSE 5%-WATER 100 ML IVPB SCH (17:22)
[2025-07-20 21:37] VITALS: BP 99/58; PULSE 89; RESP 25; TEMP 99.4
[2025-07-20] MEDS ORDERED: LIDOCAINE PATCH REMOVAL MC SCH (22:00)
== END 2025-07-20 21:47 | disposition short-term general hospital (02) | DRG 871 ==
LOC: JER 12:32 → JERBED 17:22 → INTOOBSV 17:22 → UNDOADMOB 17:22 → OBSVTOIN 17:22 → J6S 19:56 → JERBED 19:56 → J6S 07-17 14:56 → OBSVTOIN 07-17 14:56 → J6W TELE 07-17 17:06 → J6S 07-17 17:06 → JICU 07-18 14:55
PROVIDERS: ADMIT Student in an Organized Health Care Education/Training Program; ATTEND Internal Medicine Pulmonary Disease
DX: A41.51 Sepsis due to Escherichia coli [E. coli] (principal); J96.00 Acute respiratory failure, unspecified whether with hypoxia or hypercapnia; N13.30 Unspecified hydronephrosis; N10 Acute pyelonephritis; N17.9 Acute kidney failure, unspecified; E87.20 Acidosis, unspecified; E78.5 Hyperlipidemia, unspecified; I12.9 Hypertensive chronic kidney disease with stage 1 through stage 4 chronic kidney disease, or unspecified chronic kidney disease; E11.22 Type 2 diabetes mellitus with diabetic chronic kidney disease; N18.9 Chronic kidney disease, unspecified; N20.0 Calculus of kidney; N40.0 Benign prostatic hyperplasia without lower urinary tract symptoms; D69.6 Thrombocytopenia, unspecified; E87.5 Hyperkalemia; E83.39 Other disorders of phosphorus metabolism; E83.42 Hypomagnesemia
CPT/HCPCS: 36415; 36600; 71045-TC-FY; 74176-TC; 76705-TC; 76775-TC; 80048; 80053; 81003; 82010; 82140; 82550; 82803; 82962; 83036; 83605; 83690; 83735; 83880; 84100; 84484; 85025; 85610; 85730; 86140; 86803; 86850; 86900; 86901; 87040; 87086; 87389; 87481; 87637-QW; 93005; 93010; 93306-TC; 94640; 94660; 99285-25